=== PATIENT | male | born 1970 | race Caucasian/White ===

== ENCOUNTER 2020-02-19 15:25 | Outpatient (CLI) | payer BC ==
--- NOTE | 2020-02-19 16:07 | RAD ---
XR Knee Lt 3 View HISTORY: Left knee pain FINDINGS: No fracture or dislocation is identified. Degenerative changes are seen, most prominent in the medial tibiofemoral compartment manifested by osteophyte formation and joint space narrowing.
== END 2020-02-19 15:26 | disposition home or self-care (01) ==
LOC: BICRAD 15:25
PROVIDERS: ATTEND Family Medicine
DX: M25.562 Pain in left knee (principal); M17.12 Unilateral primary osteoarthritis, left knee